=== PATIENT | female | born 1985 | race Caucasian/White ===

== ENCOUNTER 2022-02-23 19:31 | Inpatient (IN) | payer OTHER ==
[~2022-02-23] VITALS: Ht 160 cm; Wt 72.7 kg
[2022-02-23] MEDS ORDERED: SODIUM CHLORIDE 0.9% 1,000 ML IV ONE (22:00)
[2022-02-23 22:52] LABS: BASOPHILS % (AUTO) 0.3 % (0.0-2.0); EOSINOPHILS % (AUTO) 0.2 % (1.0-6.0); HEMATOCRIT 41.1 % (36-46); HEMOGLOBIN 13.5 g/dL (12.0-16.0); LYMPHOCYTES # (AUTO) 2.8 K/uL (1.0-4.8); MEAN CORPUSCULAR HEMOGLOBIN 26.1 pg (26.0-34.0); MEAN CORPUSCULAR HGB CONC 32.8 G/dL (31.0-37.0); MEAN CORPUSCULAR VOLUME 80 fL (80-100); MONOCYTES # (AUTO) 0.8 K/uL (0.1-1.0); MONOCYTES % (AUTO) 6.4 % (2.0-9.0); NEUTROPHILS # (AUTO) 8.9 K/uL (1.8-7.7); NEUTROPHILS % (AUTO) 71.1 % (40.0-70.0); PLATELET COUNT (AUTO) 351 K/uL (150-450); RED BLOOD CELL COUNT(AUTO) 5.17 MIL/uL (4.00-5.20); RED CELL DISTRIBUTION WIDTH 13.4 % (11.5-14.5)
[2022-02-23 23:17] LABS: ALANINE AMINOTRANSFERASE 21 U/L (12-78); ALBUMIN 4.1 g/dL (3.4-5.0); ALKALINE PHOSPHATASE 65 U/L (46-116); ANION GAP 9 mmol/L (8-16); ASPARTATE AMINOTRANSFERASE 13 U/L (15-37); BILIRUBIN,TOTAL 0.5 mg/dL (0.1-1.0); CALCIUM, TOTAL 8.9 mg/dL (8.8-10.5); CARBON DIOXIDE 30 mmol/L (22-29); CHLORIDE 101 mmol/L (98-107); CREATININE 0.79 mg/dL (0.60-1.30); GLOMERULAR FILTR. RATE CALC > 60 mL/min (>60); GLUCOSE,RANDOM 86 mg/dL (70-110); SODIUM SERUM 140 mmol/L (136-145); TOTAL PROTEIN, SERUM 7.8 g/dL (6.4-8.2); UREA NITROGEN, BLOOD 10 mg/dL (7-18)
[2022-02-23 23:19] LABS: AMPHET/METH SCREEN,URINE POSITIVE (NEGATIVE); BARBITURATE SCREEN, URINE NEGATIVE (NEGATIVE); BENZODIAZEPINES SCREEN,URINE NEGATIVE (NEGATIVE); CANNABINOID SCREEN,URINE NEGATIVE (NEGATIVE); COCAINE SCREEN,URINE NEGATIVE (NEGATIVE); METHADONE SCREEN, URINE NEGATIVE (NEGATIVE); OPIATE SCREEN,URINE POSITIVE (NEGATIVE)
[2022-02-23 23:21] LABS: PHENCYCLIDINE SCREEN,URINE NEGATIVE (NEGATIVE)
[2022-02-24] MEDS ORDERED: TraZODone HCL 50 MG TABLET PO PRN (00:30)
[2022-02-24] MEDS ORDERED: ACETAMINOPHEN 325 MG TABLET PO PRN (00:30)
[2022-02-24] MEDS ORDERED: BACLOFEN 10 MG TABLET PO PRN (00:30)
[2022-02-24] MEDS ORDERED: LOPERAMIDE HCL 2 MG/15 ML SUSPENSION UDCUP PO PRN (00:30)
[2022-02-24] MEDS ORDERED: MORPHINE SULFATE 2 MG/ML SYRINGE IVP PRN (00:30)
[2022-02-24] MEDS ORDERED: MAGNESIUM HYDROXIDE SUSPENSION 30 ML UDCUP PO PRN (00:30)
[2022-02-24] MEDS ORDERED: HydrOXYzine PAMOATE 50 MG CAPSULE PO PRN (00:30)
[2022-02-24] MEDS ORDERED: CloNIDine HCL 0.1 MG TABLET PO PRN (00:30)
[2022-02-24] MEDS ORDERED: PROMETHAZINE HCL 25 MG TABLET PO PRN (00:30)
[2022-02-24] MEDS ORDERED: IPRATROPIUM BROMIDE 0.5 MG/2.5 ML NEB SOLUTION NEB PRN (00:30)
[2022-02-24] MEDS ORDERED: MAG HYDROX/AL HYDROX/SIMETH ES 30 ML SUSPENSION UDCUP PO PRN (00:30)
[2022-02-24] MEDS ORDERED: BISACODYL 10 MG RECTAL RECTAL SUPPOSITORY PR PRN (00:30)
[2022-02-24] MEDS ORDERED: HYDROCODONE/ACETAMINOPHEN 5-325 MG TABLET PO PRN (00:30)
[2022-02-24] MEDS ORDERED: ALBUTEROL SULFATE 2.5 MG/0.5 ML NEB SOLUTION NEB PRN (00:30)
[2022-02-24] MEDS ORDERED: DICYCLOMINE HCL 10 MG CAPSULE PO PRN (00:30)
[2022-02-24] MEDS: LORazepam 1 MG TABLET PO PRN ×2 (00:47→11:52)
[2022-02-24] MEDS: ONDANSETRON HCL 4 MG/2 ML VIAL IVP PRN (00:50)
[2022-02-24 01:27] VITALS: BP 112/58
[2022-02-24] MEDS: IBUPROFEN 600 MG TABLET PO PRN ×2 (01:50→15:34)
[2022-02-24] MEDS: SODIUM CHLORIDE 0.45% 1,000 ML IV SCH ×2 (01:51→14:38)
[2022-02-24] MEDS ORDERED: POTASSIUM CHLORIDE 20 MEQ ER TABLET PO ONE (02:30)
[2022-02-24 04:44] VITALS: BP 99/83
[2022-02-24 08:06] VITALS: BP 129/52
[2022-02-24] MEDS: HEPARIN SODIUM,PORCINE 5,000 UNITS/ML VIAL SQ SCH ×3 (08:34→23:38)
[2022-02-24] MEDS: PANTOPRAZOLE SODIUM 40 MG/VIAL IVP SCH (08:34)
[2022-02-24] MEDS: DOCUSATE SODIUM 100 MG CAPSULE PO SCH ×2 (08:34→20:37)
[2022-02-24 15:43] VITALS: BP 109/66
[2022-02-24] MEDS: ACETAMINOPHEN 325 MG TABLET PO PRN (20:36)
[2022-02-24] MEDS: ZOLPIDEM TARTRATE 5 MG TABLET PO PRN (20:37)
[2022-02-24 20:54] VITALS: BP 102/56
[2022-02-25] MEDS: SODIUM CHLORIDE 0.45% 1,000 ML IV SCH ×2 (03:02→23:27)
[2022-02-25 04:30] VITALS: BP 117/52
[2022-02-25 08:03] VITALS: BP 111/54
[2022-02-25] MEDS: DOCUSATE SODIUM 100 MG CAPSULE PO SCH ×2 (08:45→20:44)
[2022-02-25] MEDS: ACETAMINOPHEN 325 MG TABLET PO PRN (08:45)
[2022-02-25] MEDS: HEPARIN SODIUM,PORCINE 5,000 UNITS/ML VIAL SQ SCH ×3 (08:45→23:26)
[2022-02-25] MEDS: PANTOPRAZOLE SODIUM 40 MG/VIAL IVP SCH (08:45)
[2022-02-25 10:35] LABS: BASOPHILS % (AUTO) 0.4 % (0.0-2.0); EOSINOPHILS % (AUTO) 0.5 % (1.0-6.0); HEMATOCRIT 37.7 % (36-46); HEMOGLOBIN 12.5 g/dL (12.0-16.0); LYMPHOCYTES # (AUTO) 1.5 K/uL (1.0-4.8); LYMPHOCYTES % (AUTO) 19.1 % (22.0-44.0); MEAN CORPUSCULAR HEMOGLOBIN 26.2 pg (26.0-34.0); MEAN CORPUSCULAR HGB CONC 33.2 G/dL (31.0-37.0); MEAN CORPUSCULAR VOLUME 79 fL (80-100); MONOCYTES # (AUTO) 0.6 K/uL (0.1-1.0); MONOCYTES % (AUTO) 7.2 % (2.0-9.0); NEUTROPHILS # (AUTO) 5.8 K/uL (1.8-7.7); NEUTROPHILS % (AUTO) 72.8 % (40.0-70.0); PLATELET COUNT (AUTO) 270 K/uL (150-450); RED BLOOD CELL COUNT(AUTO) 4.78 MIL/uL (4.00-5.20); RED CELL DISTRIBUTION WIDTH 13.1 % (11.5-14.5)
[2022-02-25 10:43] LABS: ANION GAP 5 mmol/L (8-16); CARBON DIOXIDE 27 mmol/L (22-29); CHLORIDE 106 mmol/L (98-107); CREATININE 0.74 mg/dL (0.60-1.30); GLUCOSE,RANDOM 101 mg/dL (70-110); POTASSIUM 3.7 mmol/L (3.5-5.1); SODIUM SERUM 138 mmol/L (136-145); UREA NITROGEN, BLOOD 8 mg/dL (7-18)
[2022-02-25 10:44] LABS: CALCIUM, TOTAL 8.2 mg/dL (8.8-10.5); GLOMERULAR FILTR. RATE CALC > 60 mL/min (>60)
[2022-02-25 10:49] LABS: ALANINE AMINOTRANSFERASE 23 U/L (12-78); ALBUMIN 3.3 g/dL (3.4-5.0); ALKALINE PHOSPHATASE 61 U/L (46-116); ASPARTATE AMINOTRANSFERASE 16 U/L (15-37); BILIRUBIN,TOTAL 0.3 mg/dL (0.1-1.0); TOTAL PROTEIN, SERUM 6.4 g/dL (6.4-8.2)
[2022-02-25] MEDS: LORazepam 1 MG TABLET PO PRN (14:58)
[2022-02-25 15:57] VITALS: BP 105/73
[2022-02-25] MEDS: ONDANSETRON HCL 4 MG/2 ML VIAL IVP PRN (17:22)
[2022-02-25 20:33] VITALS: BP 99/60
[2022-02-25] MEDS: IBUPROFEN 600 MG TABLET PO PRN (20:45)
[2022-02-25 23:16] VITALS: BP 101/54
[2022-02-25] MEDS: ZOLPIDEM TARTRATE 5 MG TABLET PO PRN (23:28)
[2022-02-26 06:06] VITALS: BP 105/60
[2022-02-26] MEDS: HEPARIN SODIUM,PORCINE 5,000 UNITS/ML VIAL SQ SCH ×3 (08:05→23:17)
[2022-02-26] MEDS: DOCUSATE SODIUM 100 MG CAPSULE PO SCH ×2 (08:05→20:13)
[2022-02-26] MEDS: PANTOPRAZOLE SODIUM 40 MG/VIAL IVP SCH (08:05)
[2022-02-26 08:23] VITALS: BP 107/59
[2022-02-26] MEDS: SODIUM CHLORIDE 0.45% 1,000 ML IV SCH ×2 (08:28→20:14)
[2022-02-26] MEDS: ACETAMINOPHEN 325 MG TABLET PO PRN ×2 (12:35→17:17)
[2022-02-26] MEDS ORDERED: DiphenhydrAMINE HCL 25 MG CAPSULE PO ONE (15:00)
[2022-02-26 16:31] VITALS: BP 101/55
[2022-02-26] MEDS: ONDANSETRON HCL 4 MG/2 ML VIAL IVP PRN (18:15)
[2022-02-26 20:00] VITALS: BP 113/60
[2022-02-26] MEDS ORDERED: ZOLPIDEM TARTRATE 10 MG TABLET PO SCH (21:00)
[2022-02-27 04:00] VITALS: BP 121/80
[2022-02-27 08:00] VITALS: BP 110/84
[2022-02-27] MEDS: SODIUM CHLORIDE 0.45% 1,000 ML IV SCH (08:08)
[2022-02-27] MEDS: HEPARIN SODIUM,PORCINE 5,000 UNITS/ML VIAL SQ SCH (08:09)
[2022-02-27] MEDS: PANTOPRAZOLE SODIUM 40 MG/VIAL IVP SCH (08:09)
[2022-02-27] MEDS: DOCUSATE SODIUM 100 MG CAPSULE PO SCH (08:13)
[2022-02-27] MEDS: IBUPROFEN 600 MG TABLET PO PRN (08:49)
== END 2022-02-27 16:55 | DRG 641 ==
LOC: EMS 19:36 → 6S 02-24 00:59
PROVIDERS: ADMIT Hospitalist; ATTEND Hospitalist
DX: E87.6 Hypokalemia (principal); F10.139 Alcohol abuse with withdrawal, unspecified; F11.13 Opioid abuse with withdrawal; D72.829 Elevated white blood cell count, unspecified; Y90.9 Presence of alcohol in blood, level not specified
CPT/HCPCS: 74022; 80053; 83735; 84132; 84703; 85025; 99285; C9113; J1644; J2270; J2405; J7030